=== PATIENT | male | born 1985 | race Caucasian/White ===

== ENCOUNTER → 2020-11-07 13:32 | Outpatient (BNVA) | payer SELFPAY | PROVIDERS: Family Provider Family Medicine; Referring Provider Family Medicine; Visit Provider Internal Medicine | DX: E11.9 Type 2 diabetes mellitus without complications (principal) | CPT/HCPCS: 99204 ==

== ENCOUNTER → 2021-09-05 12:40 | Outpatient (BNVA) | payer SELFPAY | PROVIDERS: Family Provider Family Medicine; Visit Provider Internal Medicine | DX: E11.9 Type 2 diabetes mellitus without complications (principal); Z78.9 Other specified health status; Z79.4 Long term (current) use of insulin; Z79.84 Long term (current) use of oral hypoglycemic drugs | CPT/HCPCS: 99214 ==

== ENCOUNTER → 2023-03-31 10:25 | Outpatient (BNVA) | payer SELFPAY | PROVIDERS: Family Provider Family Medicine; PCP Family Medicine Sports Medicine; Visit Provider Internal Medicine | DX: E11.9 Type 2 diabetes mellitus without complications (principal); R00.0 Tachycardia, unspecified; Z79.4 Long term (current) use of insulin; R63.4 Abnormal weight loss; E78.2 Mixed hyperlipidemia | CPT/HCPCS: 36415; 80048; 84681; 86337; 86341 ==

== ENCOUNTER 2024-09-07 13:09 | Outpatient (CLI) | payer OTHER, SELFPAY ==
--- NOTE | 2024-09-07 13:11 | XR_ITS ---
WS: [id number] XR chest 2V* [id number] REASON FOR EXAM: continued cough p 3 months FINDINGS: The heart and the mediastinum are within normal limits. 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 No acute or subacute pulmonary parenchymal or pleural abnormality. No significant abnormality of the bony thorax. XR/XR chest 2V* [id number] IMPRESSION: No significant abnormality.
== END 2024-09-07 13:10 | disposition home or self-care (01) ==
PROVIDERS: Family Provider Family Medicine; PCP Family Medicine; Visit Provider Family Medicine
DX: R05.3 Chronic cough (principal)
CPT/HCPCS: 71046